=== PATIENT | male | born 1965 | race Caucasian/White ===

== ENCOUNTER 2019-11-26 15:32 | Emergency (ER) | payer SELFPAY ==
[2019-11-26 17:53] VITALS: BP 138/84
--- NOTE | 2019-11-29 07:06 | ED ---
Lower Extremity - HPI Summary HPI Summary: This patient is a 54-year-old otherwise healthy male presenting to the ED with a left ankle injury. Patient states he twisted the ankle proximally 1 hour [employer] during the fall. He was unable to ambulate following. Denies any numbness or tingling to the area, however is endorsing pain to the lateral portion of the left ankle with swelling. Denies any pain to the lower extremity otherwise. Patient is able to move about the knee without limitation of flexion or extension. Denies any numbness or tingling to the toes. Denies any color or temperature changes throughout. He did take ibuprofen prior to arrival which improved his symptoms. - History of Current Complaint Chief Complaint: EDExtremityLower Stated Complaint: FALL-ANKLE INJURY PER PT Hx Obtained From: Patient Mechanism Of Injury: Twisted Onset of Pain: Hours Onset/Duration: Hours Severity Initially: Mild Severity Currently: Mild Pain Intensity: 1 Pain Scale Used: 0-10 Numeric Timing: Constant Location: Is Discrete @ - left ankle Associated Signs And Symptoms: Positive: Swelling. Negative: Redness, Bruising , Weakness, Dizziness Aggravating Factor(s): Standing, Ambulation Alleviating Factor(s): Rest Able to Bear Weight: No - Risk Factors Gout Risk Factors: Negative DVT Risk Factors: Negative Septic Arthritis Risk Factor: Negative - Allergies/Home Medications Allergies/Adverse Reactions: Allergies Allergy/AdvReac Type Severity Reaction Status Date / Time Penicillins Allergy Hives Verified 11/26/19 15:37 Home Medications: Home Medications Cholecalciferol TAB* [Vitamin D TAB*] 500 unit PO DAILY 11/26/19 [History Confirmed 11/26/19] Cyanocobalamin TAB* [Vitamin B12 TAB*] 500 mcg PO EVERY OTHER DAY 11/26/19 [ History Confirmed 11/26/19] PMH/Surg Hx/FS Hx/Imm Hx Previously Healthy: Yes - Immunization History Date of Influenza Vaccine: 2018 Hx Pertussis Vaccination: No Immunizations Up to Date: Yes Infectious Disease History: No Infectious Disease History: Denies: Traveled Outside the [place] in Last 30 Days - Social History Occupation: Employed Full-time Lives: With Family Alcohol Use: None Hx Substance Use: No Substance Use Type: Reports: None Smoking Status (MU): Never Smoked Tobacco Review of Systems Negative: Fever, Chills, Fatigue, Skin Diaphoresis Negative: Palpitations, Chest Pain Negative: Shortness Of Breath, Cough Genitourinary: Negative Positive: no symptoms reported, see HPI Positive: Arthralgia - left ankle pain. Negative: Myalgia Neurological: Negative All Other Systems Reviewed And Are Negative: Yes Physical Exam Triage Information Reviewed: Yes Vital Signs On Initial Exam: Initial Vitals Temp Pulse Resp BP Pulse Ox 97.9 F 66 16 151/95 100 11/26/19 15:35 11/26/19 15:35 11/26/19 15:35 11/26/19 15:35 11/26/19 15:35 Vital Signs Reviewed: Yes Appearance: Positive: Well-Appearing, Well-Nourished Skin: Positive: Warm, Skin Color Reflects Adequate Perfusion Head/Face: Positive: Normal Head/Face Inspection Eyes: Positive: EOMI, PAT, Conjunctiva Clear Neck: Positive: Supple, No Lymphadenopathy Respiratory/Lung Sounds: Positive: Clear to Auscultation Cardiovascular: Positive: RRR Musculoskeletal: Positive: Pain @ - left ankle pain Neurological: Positive: Speech Normal Psychiatric: Positive: Affect/Mood Appropriate Procedures - Sedation Patient Received Moderate/Deep Sedation with Procedure: No Diagnostics - Vital Signs Vital Signs Temp Pulse Resp BP Pulse Ox 11/26/19 17:43 98 F 60 16 138/84 97 11/26/19 15:35 97.9 F 66 16 151/95 100 - Laboratory Lab Statement: Any lab studies that have been ordered have been reviewed, and results considered in the medical decision making process. Lower Extremity Course/Dx - Course Course Of Treatment: Physical examination, patient appears well. He denies any acute pain distress, rating his pain to the left lateral ankle a 3/10. On physical examination, patient has no limitation with range of motion flexion and extension, however does endorse pain with this. Denies any pain during flexion or extension of the knee. There is no ecchymosis. Good toe cap refill. Swelling to the L lateral ankle. Xray obtained which shows evidence of fracture. Pt given crutches, gel splint and karin wrapped. OK for DC at this time and will f/u in [place]. - Diagnoses Differential Diagnosis/HQI/PQRI: Positive: Sprain, Strain Provider Diagnoses: Ankle sprain Discharge ED - Sign-Out/Discharge Documenting (check all that apply): Patient Departure - Discharge Plan Condition: Stable Disposition: HOME Patient Education Materials: Ankle Sprain (ED) Referrals: John Garcia MD [Medical Doctor] - No Primary Care Phys,NOPCP [Primary Care Provider] - Additional Instructions: Please follow up with orthopedics if you have worsening symptoms - I have given you a referral - Billing Disposition and Condition Condition: STABLE Disposition: Home - Attestation Statements Provider Attestation: I was available for consultation for this patient. I did not evaluate the patient or participate in any medical decision making or disposition decisions unless I am specifically named in the chart as having consulted on the patient. If I have consulted on the patient, please see my own ED note on the patient encounter. Duke Panchal MD
== END 2019-11-26 17:43 | disposition home or self-care (01) ==
LOC: ED 15:32
DX: M25.572 Pain in left ankle and joints of left foot (principal); S93.402A Sprain of unspecified ligament of left ankle, initial encounter; W19.XXXA Unspecified fall, initial encounter; Y92.9 Unspecified place or not applicable; Z88.0 Allergy status to penicillin
CPT/HCPCS: 99282